=== PATIENT | female | born 1960 | race Caucasian/White ===

== ENCOUNTER → 2017-10-07 | Outpatient (CLI) | payer BC ==
--- NOTE | 2017-10-08 14:27 | MAMMOGRAPHY REPORT ---
BILATERAL DIGITAL SCREENING MAMMOGRAM TOMOSYNTHESIS WITH CAD: 10/07/2017 CLINICAL HISTORY: Routine screening examination. TECHNIQUE: Breast tomosynthesis in addition to standard 2D mammography was performed. Current study was also evaluated with a Computer Aided Detection (CAD) system. COMPARISON: Comparison is made to exams dated: 08/25/2016 mammogram, 08/21/2015 mammogram, 12/20/2013 mammogram, 12/10/2012 mammogram, 11/28/2011 mammogram, and 11/28/2011 ultrasound - [facility]. BREAST COMPOSITION: There are scattered areas of fibroglandular density in both breasts. FINDINGS: There is a stable ribbon-shaped biopsy marker clip in the 6:00 anterior left breast. No ajimes spicious mass, architectural distortion or cluster of microcalcifications is seen. IMPRESSION: ACR BI-RADS CATEGORY 1: NEGATIVE There is no mammographic evidence of malignancy. A 1 year screening mammogram is recommended. The pa tient will receive written notification of the results. Approximately 10% of breast cancers are not detected with mammography. A negative mammographic report should not delay biopsy if a clinically suggestive mass is present. Sara Arana M.D. ay/:10/07/2017 15:45:12 [place] Sinker: Liat BAKER(Will)(M), [facility] letter sent: Normal 1/2 BI-RADS Code: ACR BI-RADS Category 1: Negative
== END | disposition home or self-care (01) ==
LOC: C.MAMM 14:07
PROVIDERS: ATTEND Physician Assistant
DX: Z12.31 Encounter for screening mammogram for malignant neoplasm of breast (principal)

== ENCOUNTER 2024-01-27 05:14 | Observation (INO) ==
--- NOTE | 2023-12-25 10:33 | PAT Medication Instructions ---
Medication Instructions Date of Service December 25, 2023 Home Medications apixaban 5 mg tablet (Eliquis) 5 mg PO BID buspirone 5 mg tablet 5 mg PO TID fluoxetine 40 mg capsule 40 mg PO HS metoprolol succinate 25 mg tablet,extended release 24 hr 25 mg PO BID trazodone 50 mg tablet 50 mg PO HS ASK your prescriber and surgeon apixaban 5 mg tablet (Eliquis) 5 mg PO BID(in order for spinal or epidural anesthesia, Eliquis needs to be stopped 72 hours/3 days before surgery. Please check if okay with doctor that prescribes this to you) Take morning of surgery With a small sip of water, OTHERWISE NOTHING TO EAT OR DRINK AFTER MIDNIGHT: buspirone 5 mg tablet 5 mg PO TID metoprolol succinate 25 mg tablet,extended release 24 hr 25 mg PO BID Take evening before surgery buspirone 5 mg tablet 5 mg PO TID fluoxetine 40 mg capsule 40 mg PO HS metoprolol succinate 25 mg tablet,extended release 24 hr 25 mg PO BID trazodone 50 mg tablet 50 mg PO HS Other Notes If you have any questions please call us at [phone] or [phone] or [phone] or [phone]
--- NOTE | 2023-12-31 12:59 | Anesthesiology Consultation ---
Date of Service December 31, 2023 Assessment & Plan (1) Encounter for pre-operative examination: - awaiting confirmed 12/29/23 [facility] EKG. - NO neuraxial anesthesia by patient request/concern. - cardiology office visit 12/29/23 S: "...cardiology follow-up. Patient is also here for preop cardiac clearance. Patient is tentatively scheduled for L Knee TKA on 01/27/2024...in terms of preop risk assessment, per Silvano Criteria, patient was counseled that she would be placed at a low risk (less than 0.4%) for any adverse perioperative cardiovascular events associated with R TKA surgery. Patient is on a good medication regimen and no other cardiac testing or interventions would further lower that risk. Patient states she understands and is accepting of that risk and wishes to proceed with surgery.-EKG competed and personally reviewed by the undersigned-Reduce Metoprolol Succinate to 12.5 mg at bedtime-Hold Eliquis 48 hours prior to surgery. Patient should resume when hemodynamically stable..." - Outpatient joint assessment: Patient is currently scheduled for inpatient pathway. If re-evaluated and patient/surgeon requests outpatient pathway, patient is not recommended candidate for outpatient joint program from anesthesia standpoint. Chart Review Chart Review: Pending: Refer to Additional Notes / Consult section and Patient seen in Pre Admission Testing Teaching & Discussion Pre-Anesthesia Teaching/Discussion Notes: Instructed NPO after midnight before surgery, except medications with 15 cc of water. Medication instructions provided according to the PAT guidelines. History Surgery Operation Date: 01/27/24 07:15 Proposed Procedures p Left Total Knee Arthroplasty - Randolph Lobo MD Height/Weight Height: 5 ft 4 in Weight: 95.8 kg Allergies Allergy/AdvReac Type Severity Reaction Status Date / Time sulfamethoxazole Allergy Intermediate headaches Verified 12/24/23 14:29 [From Bactrim] trimethoprim [From Bactrim] Allergy Intermediate headaches Verified 12/24/23 14:29 Medications Home Medications Medication Instructions Recorded Confirmed Last Taken apixaban 5 mg tablet (Eliquis) 5 mg PO BID 04/29/23 12/24/23 05/08/23 buspirone 5 mg tablet 5 mg PO TID 04/29/23 12/24/23 05/10/23 23:00 fluoxetine 40 mg capsule 40 mg PO HS 04/29/23 12/24/23 05/10/23 20:00 metoprolol succinate 25 mg 25 mg PO BID 04/29/23 12/24/23 05/10/23 22:30 tablet,extended release 24 hr trazodone 50 mg tablet 50 mg PO HS 04/29/23 12/24/23 05/09/23 Past Medical History Medical History (Updated 01/01/24 @ 09:00 by Anabel Alcantara PA-C) Anxiety Atrial fibrillation dx 2020 with COVID, converted to sinus initially, recurrent afib 1 month later so started on flecanide, pt her stopped meds, admitted 04/25-04/26/23 with recurrent afib, started back on metoprolol and eliquis, no cardioversion, follow with [facility]vin cardio Depression Empty sella listed in [facility] EMR History of COVID-19 hx 2020 - flu like symptoms, denies hospitalized, resolved Hypertension hx On anticoagulant therapy eliquis Osteoarthritis of left knee Sleep apnea does not have a cpap/bipap machine. Patient denies h/o stroke, seizures, heart attack, heart failure, DM, blood clots/DVTs or blood transfusions. Exercise / Class Metabolic Activity III < 4 Walking/Shop/Light housework (denies chest discomfort or shortness of breath with usual activities) Past Family History Family History Father Lung cancer Sister Stroke Other No family history of adverse response to anesthesia Past Surgical History Surgical History History of colonoscopy History of esophagogastroduodenoscopy (EGD) History of right knee joint replacement (~04/2023) Past Anesthesia History No Hx of Anesthesia Complications and No Family Hx of Anesthesia Complications History of PONV No Hx of PONV and No Hx of Motion Sickness Social History Smoking Status: Never smoker Do You Dip or Chew Tobacco: No Hx Alcohol Use: Yes alcohol intake frequency: holidays/special occasions only Hx Substance Use: No substance use type: does not use Review of Systems Patient denies chest pain, shortness of breath, dyspnea on exertion, reflux, fever, chills, cough, wheezing, or palpitations. Physical Exam Vital Signs Vitals BP 132/80 P 55 TEMP 98.3 SP02 95% on RA RESP 18 Physical Patient resting comfortably in chair in no acute distress, alert and oriented, responding appropriately throughout visit Full cervical extension range of motion without pain TMD 3.5 finger breadths Mallampati Score 2 Dentition: intact, denies chipped or loose teeth, caps/crowns, implants or bridges Lungs: normal respiratory effort. Good air movement, clear throughout to auscultation, no adventitious breath sounds Cardiac: regular rate and rhythm, no murmurs noted Carotid arteries: negative bruit bilat Lab Results Anesthesia Preop Results Results Anesthesia Widget: WBC 6.29 K/ul (4.8-10.8) 12/31/23 Hgb 13.9 g/dl (12.0-16.0) 12/31/23 Hct 42.5 % (37.0-47.0) 12/31/23 Plt 238 K/uL (130-400) 12/31/23 Na 137 mmol/L (136-145) 12/31/23 K 4.1 mmol/L (3.5-5.1) 12/31/23 Cl 105 mmol/L (98-107) 12/31/23 CO2 28 mmol/L (21-32) 12/31/23 BUN 12 mg/dl (6-23) 12/31/23 Creat 0.69 mg/dl (0.6-1.2) 12/31/23 Glucose Level 85 mg/dl (70-99(Fasting)) 12/31/23 PT 10.9 Seconds (9.0-12.0) 12/31/23 PTT 28 Seconds (21-31) 12/31/23 INR 1.0 (0.9-1.1) 12/31/23 Blood Type O Positive 12/31/23 Antibody Screen NEGATIVE 12/31/23 Testing Chest X-Ray Date: 12/31/23 No acute process.
--- NOTE | 2024-01-10 19:24 | History & Physical Report ---
Date of Service January 10, 2024 Assessment & Plan (1) Primary osteoarthritis of left knee: Plan: Treatment options discussed with patient. She has failed conservative measures and would like to proceed with surgery. Risks, benefits and alternatives to surgery including but not limited to infection, DVT, pain, stiffness, need for revision surgery, damage to blood vessels, damage to nerves, PE, , were discussed with the patient and they wish to proceed. Plan for left total knee arthroplasty scheduled for January 26 at [facility] with Dr. Lobo. Plan on outpatient physical therapy postop. Plan on resuming home Eliquis postop for DVT prophylaxis. All questions answered. Patient follow-up postop. History of Present Illness Chief Complaint: Left knee pain Primary Care Provider: Tio Baird PA-C 63-year-old female with past medical history significant for A-fib, hypertension, sleep apnea who presents with ongoing left knee pain. Pain is interfering with her daily activities. She has failed conservative measures and would like to proceed with surgery. Patient denies headaches, sweats, fevers, chills, double vision, blurred vision, cough, sore throat, dysphagia, chest pain, sob, wheezing, n/v/d/c, numbness, tingling, fatigue, urinary symptoms, mood disorders. ROS positive for left knee pain and stiffness. Allergies Allergy/AdvReac Type Severity Reaction Status Date / Time sulfamethoxazole Allergy Intermediate headaches Verified 12/24/23 14:29 [From Bactrim] trimethoprim [From Bactrim] Allergy Intermediate headaches Verified 12/24/23 14:29 Home Medications Medication Instructions Recorded Confirmed Type apixaban 5 mg tablet (Eliquis) 5 mg PO BID 04/29/23 12/24/23 History buspirone 5 mg tablet 5 mg PO TID 04/29/23 12/24/23 History fluoxetine 40 mg capsule 40 mg PO HS 04/29/23 12/24/23 History metoprolol succinate 25 mg 25 mg PO BID 04/29/23 12/24/23 History tablet,extended release 24 hr trazodone 50 mg tablet 50 mg PO HS 04/29/23 12/24/23 History Past Med/Surg History Medical History (Updated 01/10/24 @ 19:23 by Bradley Howell PA-C) Empty sella listed in [facility] EMR Osteoarthritis of left knee Depression Anxiety Hypertension hx Sleep apnea does not have a cpap/bipap machine. History of COVID-19 hx 2020 - flu like symptoms, denies hospitalized, resolved On anticoagulant therapy eliquis Atrial fibrillation dx 2020 with COVID, converted to sinus initially, recurrent afib 1 month later so started on flecanide, pt her stopped meds, admitted 04/25-04/26/23 with recurrent afib, started back on metoprolol and eliquis, no cardioversion, follow with [facility] Surgical History History of right knee joint replacement (~04/2023) History of colonoscopy History of esophagogastroduodenoscopy (EGD) Family History Father Lung cancer Sister Stroke Other No family history of adverse response to anesthesia Social History Smoking Status: Never smoker Second Hand Exposure: No; Do You Dip or Chew Tobacco: No; Hx Alcohol Use: Yes Hx Substance Use: No Preferred Language: Occitan Communication Ability: Effective Runner Man Required: No Beliefs That Will Affect Care: None Current Living Situation: Spouse Feels Safe at Home: Yes Assistive Devices: None Review of Systems All systems reviewed & are unremarkable except as noted in HPI & below Physical Exam Constitutional: well developed and well nourished; no acute distress Eyes: PERRL, conjunctivae normal, anicteric sclerae ENMT: external ear and nose normal, oropharynx normal Neck: trachea midline, no thyromegaly Respiratory: normal respiratory effort, lungs clear to auscultation Cardiovascular: RRR, no murmur, no edema Musculoskeletal: Left knee: Valgus alignment. Mild effusion. Tenderness lateral joint line. Positive Alicia's. Stable to valgus and varus stress test. Range of motion is 0 to 90 degrees. Skin: no rashes, warm and dry Neurologic: patellar DTR's 2+ bilat, sensation intact Psychiatric: A+Ox3, euthymic affect Results & Data Diagnostic Findings Left knee radiographs demonstrate stage osteoarthritis, [id number] lateral compartment. There is periarticular osteophytes.
[2024-01-27] MEDS: ACETAMINOPHEN 500 MG TAB PO SCH ×2 (05:43→13:50)
[2024-01-27] MEDS: CeleBREX 200 MG CAP PO SCH (05:43)
[2024-01-27] MEDS: METOCLOPRAMIDE HCL 10 MG TABLET PO SCH (05:43)
[2024-01-27] MEDS: GABAPENTIN 600 MG DOSE PO SCH (05:43)
[2024-01-27] MEDS: FAMOTIDINE 20 MG TAB PO SCH (05:43)
[2024-01-27] MEDS: dexAMETHasone**PF** 10 MG/ML VIAL IV SCH (05:47)
[2024-01-27] MEDS: LR 500ML BOLUS, THEN 15ML/HR IV SCH (05:47)
[2024-01-27] MEDS: LR 60ML/HR IV SCH (05:47)
[2024-01-27] MEDS ORDERED: DEXAMETHASONE SOD INJ 4 MG/ML VIAL ONE ×2 (06:21→07:55)
[2024-01-27] MEDS ORDERED: ROPIVACAINE 0.5% 5 MG/ML 30 ML VIAL ONE (06:21)
[2024-01-27] MEDS ORDERED: BUPIVACAINE 0.5 % 5 MG/1 ML PF 10ML VIAL ONE (06:22)
[2024-01-27] MEDS ORDERED: MIDAZOLAM HCL 1 MG/ML 2ML VIAL ONE (06:53)
[2024-01-27] MEDS ORDERED: LIDOCAINE 2% 2 ML VIAL/AMP(20MG/ML) INFIL ONE (06:56)
[2024-01-27] MEDS ORDERED: PROPOFOL IV EMULSION 10 MG/ML 20 ML VIAL IV ONE (06:56)
[2024-01-27] MEDS ORDERED: ONDANSETRON INJ 2 MG/ML 2 ML VIAL ONE (06:57)
[2024-01-27] MEDS ORDERED: KETAMINE HCL INJ 50 MG/ML 10 ML VIAL ONE (07:04)
[2024-01-27] MEDS: TRANEXAMIC ACID 1,000 MG **IV Pre-op IV SCH (07:17)
--- NOTE | 2024-01-27 07:17 | History & Physical Bridge Note ---
Date of Service January 27, 2024 History & Physical Bridge Note I have examined the patient, reviewed the History & Physical and in the interval since the performance of the History & Physical I have noted the following changes of clinical significance: no changes noted
[2024-01-27] MEDS: ceFAZolin 2000MG 2,000 MG/15 ML SYR IV SCH ×2 (07:27→16:07)
[2024-01-27] MEDS ORDERED: fentaNYL citrate PF 100 MCG/2 ML VIAL ONE (07:44)
[2024-01-27] MEDS ORDERED: ePHEDrine sulfate 50 MG/5 ML SYR ONE (07:45)
[2024-01-27] MEDS ORDERED: PROMETHAZINE HCL 6.25 MG in SODIUM CHLORIDE 0.9% 50 ML IV PRN (07:58)
[2024-01-27] MEDS ORDERED: ePHEDrine sulfate 50 MG/ML AMP IV PRN (07:58)
[2024-01-27] MEDS ORDERED: ATROPINE SULFATE 0.1 MG/ML 10ML SYR IV PRN (07:58)
[2024-01-27] MEDS: ORTHO JOINT ANESTHETIC ONE (08:15)
[2024-01-27] MEDS: TRANEXAMIC ACID 1,000 MG **IV Intra-op IV SCH (09:02)
[2024-01-27] MEDS: ROPIV 0.5% 246mg, Ketorolac 30mg, EPINEPHrine 0.5mg in NSS INFIL SCH (09:05)
[2024-01-27] MEDS ORDERED: KETOROLAC 30 MG/ML VIAL ONE (09:24)
--- NOTE | 2024-01-27 09:24 | Operative Report ---
Post Operative Report Pre & Post Diagnosis Operation Date: 01/27/24 07:15 Pre-Op Diagnosis: Primary osteoarthritis of left knee Post-Op Diagnosis: Primary osteoarthritis of left knee I identified the patient and participated in the time-out.: Yes Procedure Operation Date: 01/27/24 07:15 Actual Procedures p Left Total Knee Arthroplasty(Left), lateral release, nikos and Acticoat superficial wound VAC application- Randolph Lobo MD Surgeon Randolph Lobo MD Horticulture Instructor Herb TONEY Estimated Blood Loss 5 Findings Consistent with Post-Op Diagnosis Specimens Bone cuts Drains Hemovac x 2 Anesthesia Type MAC Spinal Regional Complications none Disposition Disposition: Recovery Room Indications 63-year-old female with chronic osteoarthritis her left knee. She has substantial valgus alignment of her knee with tricompartmental osteoarthritis and patellofemoral malalignment. Patient's [id number] lateral compartment. Description of Procedure The patient was taken to the operating room and anesthetized under spinal MAC regional block. Patient was placed supine on the the operating table. A pneumatic tourniquet was placed about the moderately obese left upper thigh. The knee exam demonstrated 15 degrees of hyperextension with full flexion and a valgus knee with no lateral pseudolaxity approximately 15 to 20 degrees of valgus. Moderate effusion. The involved leg was elevated exsanguinated with Esmarch bandage and the pneumatic tourniquet was raised to 325 millimeters mercury. A longitudinal incision was made across the anterior knee. Skin flaps were elevated. An incision was made into the medial retinaculum and extended up into the mid third of the quadriceps tendon and extended down to the tibial tubercle. Intra-articular findings demonstrated tricompartmental osteoarthritis grade 4 all 3 compartments cysts with a thin patella. The knee was exposed by excising cruciate ligaments and menisci. The infrapatellar fat pad was resected. The fat pad over the anterior femur at the upper aspect of the articular surface was resected for placement of the component in that area. A subperiosteal peel lateral release was performed around the patella. The lateral synovial bands were released. The [employer] journey 2.0 posterior stabilized total knee arthroplasty system was utilized for the procedure. The custom femoral cutting guide was pinned in position. The distal femoral cut was made. The size 4, 5 in 1 cutting block was placed. The anterior posterior and chamfer cuts were made. The knee was extended and a free hand cut technique was performed to the patella. The patella width was measured and the width was reproduced using a 32 symmetrical patella component. 3 drill holes are made for the patella component pegs. The tibia was then subluxed. The custom tibial cutting block was pinned in position and the proximal tibial cut was made with the oscillating saw. Flexion and extension gaps were balanced. This required releasing the IT band subperiosteal of the lateral tibia doing a lateral and posterior lateral capsule release doing a popliteus tendon release and recessing some of the lateral collateral ligament on the femoral condyle. Cysts in the tibia were curetted out. The size 2 tibial trial was externally rotated in line with the tibial tubercle and pinned in position. The punch for the stem was used. The femoral trial was inserted and centered the notch cutting devices were used and the collet was placed. Tibial trials were used for the insert. The size 15 trial gave balanced ligaments through full range of motion. Patella tracking was assessed with range of motion. The patella tracked with some lateral patellar tilt so I did do a lateral release leaving as much of the synovium intact as possible and I preserved the geniculate vessels laterally. The trials were removed. The Orthomix anesthetic cocktail was injected per protocol. The cut bone surfaces and soft tissue were copiously irrigated with pulsatile lavage saline solution. The final components were cemented with Refobacin cement. The final components were Hernandez [employer]hew journey 2.0 size 4 left femoral component, size 2 left tibial component, 15 mm left tibial polyethylene insert and a 32 mm symmetrical polyethylene patella. Xperience irrigation was placed over metal tray prior to polyethyle insertion. After the cement cured, the knee was then copiously irrigated with pulsatile lavage Xperience solution. 2 drains were brought out laterally connected to Hemovac. The quadriceps tendon and medial retinaculum were closed with interrupted [id number] #1 Vicryl sutures. The knee was taken through full range of motion and repair was secure. Knee range of motion was 0 through 125 degrees.. the subcutaneous tissues were closed with 2-0 Vicryl sutures. The skin was closed with surgical charanjit. A nikos and Acticoat superficial wound VAC was applied. The tourniquet was let down and the patient had good capillary refill to the extremity. The patient tolerated the procedure well. My physician internal medicine physician assistant Herb TONEY participated as undertaker assistant and was integral part in all aspects of the procedure including prepping, draping, leg positioning, soft tissue retraction, instrument management and assisted in the closure , superficial wound VAC application and will participate in postoperative care the patient. I attest to the content of the Intraoperative Record and any orders documented therein. Any exceptions are noted below.
--- OUTSIDE RECORDS SUMMARY | 2024-01-27 10:14 | External Medical Summary | Summary of Care ---
Author Name Unknown Organization [facility] Address [address] [place] [address] Phone [phone] Care Team Providers Care Securities Dealer Name Role Phone Tio Baird PA-C Primary Care Provider Reason for Visit * Reason Comments Physical-Exam Needs Preop clearanc e for left total knee replacement on 01/27/[address] Lobo Encounter Details Date Type Department Care Team (Late st Contact Info) Description 01/12/2024 4:20 PM EDT Office Visit [facility] [address] [place] [phone] Tio Baird PA-C [email or web address] [place] [address] Primary osteoarthritis of left knee*; Severe episode of recurrent major depressive disorder, without psychotic features (HCC); Paroxysmal atrial fibrillation (HCC); Morbid obesity due to excess calories (HCC); HTN, goal below 140/90; Primary insomnia; Preop examination Allergies Active Allergy Reactions Criticality Noted Date Comments Bactrim Nausea/vomiting,Othe r (Please comment) Medium 08/23/2009 headache documented as of this encounter (statuses as of 01/12/2024) Medications Medication Sig Dispensed Refills Start Date End Date Status Apixaban 5 MG Oral Tablet (Eliquis) Take 1 Tablet by mouth in the morning and 1 Tablet before bedtime. 60 Tablet 5 05/28/2023 Active traZODone HCl 50 MG Oral Tablet (Desyrel)Indications: Insomnia, unspecified one half to one pill at bedtime as needed for sleep 90 Tablet 3 06/16/2023 Active busPIRone HCl 5 MG Oral Tablet (Buspar)Indications:A nxiety state TAKE 1 TABLET BY MOUTH IN THE MORNING, TAKE 1 TABLET AT NOON & TAKE 1 TABLET BEFORE bedtime 90 Tablet 2 11/24/2023 Active FLUoxetine HCl 40 MG Oral Capsule (PROzac)Indications:A nxiety state TAKE ONE CAPSULE BY MOUTH ONCE DAILY 90 Capsule 1 12/29/2023 Active Metoprolol Succinate ER 25 MG Oral Tablet Extended Release 24 Hour (Toprol XL) Take 0.5 Tablets by mouth at bedtime. 45 Tablet 3 12/29/2023 Active documented as of this encounter (statuses as of 01/12/2024) Active Problems Problem Noted Date Diagnosed Date Severe episode of recurrent major depressive disorder, without psychotic features 01/12/2024 Primary insomnia 01/12/2024 Paroxysmal atrial fibrillation 05/04/2023 PMB (postmenopausal bleeding) 03/27/2023 Body mass index (BMI) of 40.0 to 44.9 in adult 0 04/09/2021 Overview: Per Obesity protocol History of 2019 novel coronavirus disease (COVID -19) 02/24/2021 Morbid obesity due to excess calories 03/06/2020 HTN, goal below 140/90 09/30/2018 Empty sella 07/26/2009 Overview: CT scan 07/04 with incidental findings of empty sella ADVANCE DIRECTIVE INFORMATION 06/21/2008 Overview: No, Advance Directive brochure given to patient. Anxiety state 07/31/2004 documented as of this encounter (statuses as of 01/12/2024) Resolved Problems Problem Noted Date Diagnosed Date Resolved Date Recurrent major depressive disorder 03/02/2023 01/12/2024 Atrial fibrillation with RVR 02/24/2021 04/26/2023 Chest pain 02/24/2021 03/05/2021 Obesity, Class II, BMI 35-39 .9, isolated (see actual BMI) 01/21/2010 03/13/2023 Overview: Per Obesity Taxonomy, with sign weight loss Internal hemorrhoids 09/12/2009 017 Overview: Colonoscopy 09/12/09, severe internal hemorrhoids, otherwise negative exam. Malaise and fatigue 07/31/2004 08/31/20 17 Abdominal pain, generalized 07/31/2004 08/31/2017 Anal fissure 07/31/2004 08/31/2017 HELICOBACTER PYLORI (H. PYLORI) INFECTION 06/24/2004 08/31/2017 Nausea 05/22/2004 08/31/2017 Overview: 07/31/2004 resolved ICD-10 update of inactive term OBESITY, UNSPECIFIED 01/11/2004 010 Overview: Per Obesity Taxonomy, with sign weight loss AIDEN DOMINGO SOFT TISSUE ARM(aka LIPOMA) 01/11/2004 08/31/2017 Overview: both UE x y documented as of this encounter (statuses as of 01/12/2024) Immunizations Name Administration Dates Next Due Seasonal Influenza, Split, I IV3, With Preserve, Inj 11/27/2011(Deferred: Patient Refused) TDAP (age 11 and older)(Adacel) 11/27/2011(Defer red: Patient Refused) documented as of this encounter Social History Tobacco Use Types Packs/Day Years Used Date Smoking Tobacco: Never Smokeless Tobacco: Never Alcohol Use Standard Drinks/Week Comments Yes 0 (1 standard drink = 0.6 oz pur e alcohol) rarely PHQ-2 Answer Date Recorded PHQ Adult Total Score 17 02/26/2023 Hunger Vital Sign Answer Date Recorded Within the past 12 months, y ou worried that your food would run out before you got the money to buy more. Never true 02/27/20 23 Within the past 12 months, t he food you bought just didn't last and you didn't have money to get more. Never true 02/26/2023 Sex and Gender Information Value Date Recorded Sex Assigned at Female 03/06/2020 10:49 AM EDT Gender Identity Female 03/06/2020 10:49 AM EDT Sexual Orientation Straight 03/06/2020 10 :49 AM EDT Job Start Date Occupation Industry Not on file Not on file Not on file documented as of this encounter Last Filed Vital Signs Vital Sign Reading Time Taken Comments Blood Pressure 128/80 01/12/2024 4:07 PM EDT Pulse 72 01/12/2024 4:07 PM EDT Temperature 37.3 C (99.1 F) 01/12/2024 4:07 PM ED T Respiratory Rate 16 01/12/2024 4:07 PM EDT Oxygen Saturation 95% 01/12/2024 4:07 PM EDT Inhaled Oxygen Concentration - - Weight 96 kg (211 lb 9.6 oz) 01/12/2024 4:07 PM EDT Height 163.8 cm (5' 4.5") 01/12/2024 4:07 PM EDT Body Mass Index 35.76 01/12/2024 4:07 PM EDT documented in this encounter Functional Status Functional Status Response Date of Assess ment Are you deaf or do you have serious difficulty h earing? No 04/25/2023 Are you blind or do you have serious difficulty seeing, even when wearing glasses? No 04/25/2023 Do you have serious difficul ty walking or climbing stairs? (5 years old or older) No 04/25/2023 Do you have difficulty dress ing or bathing? (5 years old or older) No 04/25/2023 Because of a physical, menta l, or emotional condition, do you have difficulty doing errands alone such as visiting a doctor s office or shopping? (15 years old or older) No 04/25/20 Cognitive Status Response Date of Assessm ent Because of a physical, menta l, or emotional condition, do you have serious difficulty concentrating, remembering, or making decisions? (5 years old or older) No 04/25/2023 documented as of this encounter Progress Notes * Tio Baird PA-C - 01/12/2024 4:27 PM EDT Subjective: Patricia Ahmadi is a 63 year old female. Chief Complaint Patient presents with Physical-Exam Needs Preop clearance for left total knee replacement on 01/27/[address] Lobo HPI: Here for a pre-op exam. Will be having a left total knee replacement on 01-27-24 at [address] [facility] by Dr. Lobo. Had lab testing done. I don't have the results today. History of depression-stable on prozac. History of paf-on a medication. Cardiology cleared her for surgery on12-31-23. History of obesity-trying to follow a diet. History of htn-on a medication. History of insomnia-on a medication. Patient Active Problem List Diagnosis Code Anxiety state F41.1 ADVANCE DIRECTIVE INFORMATION Empty sella ([facility]) E23.6 HTN, goal below 140/90 I10 Morbid obesity due to excess calories ([facility]) E66.01 History of 2019 novel coronavirus disease (COVID-19) Z86.16 Body mass index (BMI) of 40.0 to 44.9 in adult ([facility]) Z68.41 PMB (postmenopausal bleeding) N95.0 Paroxysmal atrial fibrillation ([facility]) I48.0 Severe episode of recurrent major depressive disorder, without psychotic features ([facility]) F33.2 Primary insomnia F51.01 Current Outpatient Medications Medication Sig Dispense Refill Apixaban 5 MG Oral Tablet (Eliquis) Take 1 Tablet by mouth in the morning and 1 Tablet before bedtime. 60 Tablet 5 traZODone HCl 50 MG Oral Tablet (Desyrel) one half to one pill at bedtime as needed for sleep 90 Tablet 3 busPIRone HCl 5 MG Oral Tablet (Buspar) TAKE 1 TABLET BY MOUTH IN THE MORNING, TAKE 1 TABLET AT NOON & TAKE 1 TABLET BEFORE bedtime 90 Tablet 2 FLUoxetine HCl 40 MG Oral Capsule (PROzac) TAKE ONE CAPSULE BY MOUTH ONCE DAILY 90 Capsule 1 Metoprolol Succinate ER 25 MG Oral Tablet Extended Release 24 Hour (Toprol XL) Take 0.5 Tablets by mouth at bedtime. 45 Tablet 3 No current facility-administered medications for this visit. Past Medical History: Diagnosis Date Anxiety state 07/31/2004 Atrial fibrillation with RVR ([facility]) 02/24/2021 Body mass index (BMI) of 40.0 to 44.9 in adult ([facility]) 04/09/2021 Per Obesity protocol Dyslipidemia, goal LDL below 160 Empty sella ([facility]) 07/26/2009 CT scan 07/04 with incidental findings of empty sella Esophagitis, unspecified History of 2019 novel coronavirus disease (COVID-19) 02/24/2021 HTN, goal below 140/90 09/30/2018 Irritable bowel syndrome Lichen planus Obesity, BMI not known Recurrent major depressive disorder (HCC) 03/02/2023 Past Surgical History: Procedure Laterality Date COLONOSCOPY, DIAGNOSTIC (RECTUM) 09/12/09 wnl EGD, FLEXIBLE, W/BIOPSY 09/12/09 wnl MRI L SPINE W WO CONTRAST 08/26/08 Mild DDD, disc bulge at L5-L6, large cavernous hemangioma within the L1 vertebral body. Review of patient's allergies indicates: Allergen Reactions Bactrim Nausea/vomiting and Other (Please comment) headache Family History Problem Relation Age of Onset Other (doesn't go to doctor's) Mother Other (Lung ca) Father No Contact - in his 70's from the lung cancer No Past Hx Sister x3 Other (EtOHism) Sister at 47 Stroke Sister Heart Disorder Sister ND at age 46 - stents placed - dc'd Family Status Relation Status Mo Fa Sis Alive Sis Sis Sis Alive MGMA MGFA PGMA PGFA Social History Tobacco Use Smoking status: Never Smokeless tobacco: Never Substance Use Topics Alcohol use: Yes Comment: rarely Vaping/E-Cigarette Use Vaping/E-Cigarette Use Never User Vaping/E-Cigarette Substances Vaping/E-Cigarette Devices Review of Systems: Constitutional ROS: No change in weight and No fevers, sweats, or chills Eye ROS: No recent significant change in vision, No eye pain, redness, discharge, No diplopia, No h/o cataracts, and No h/o glaucoma Ear ROS: No ear pain, No drainage, No tinnitus or vertigo, and No recent change in hearing Nose ROS: No history of frequent colds or sinusitis, No nasal stuffiness, No history of Hay Fever, and No significant epistaxis Mouth/Throat ROS: No bleeding gums, No thrush, or No sore throat Neck ROS: No lumps or masses, No swollen glands, No recent swelling in thyroid area, No significantpain in neck, and No h/o goiter or thyroid disease Pulmonary ROS: No cough, sputum, or hemoptysis, No wheezing, No rales, No shortness of breath, and No recent change in breathing Cardiovascular ROS: No chest pain, No shortness of breath, No dyspnea on exertion, No orthopnea, Noparoxysmal nocturnal dyspnea, No edema, No palpitations, and No syncope Gastrointestinal ROS: No abdominal pain, No change in bowel habits, No significant heartburn, No significant change in appetite, No nausea, vomiting, diarrhea, or constipation, No hematemesis, No blood in stools or black tarry stools, No abdominal bloating or early satiety, and No dysphagia Genito-Urinary Female ROS: No STDs, No dysuria, No frequency, No incontinence, and No urgency Hematologic/Lymphatic ROS: No coagulation disorder, No anemia, No abnormal bleeding, No chills, No bruising, No HIV risk factors, No night sweats, No swollen nodes, and No weight loss Skin/Integumentary ROS: No rash and No itching Neurologic ROS: No headaches and No seizures Endocrine ROS: No heat intolerance, No cold intolerance, No thyroid trouble, and No excessive thirst or urination Psychiatric ROS: No psychosis OBJECTIVE: BP 128/80 | Pulse 72 | Temp 37.3 C (99.1 F) (Tympanic) | Resp 16 | Ht 1.638 m (5' 4.5") | Wt 96kg (211 lb 9.6 oz) | LMP 11/09/2016 (Approximate) | SpO2 95% | BMI 35.76 kg/m | BSA 2.09 m PHYSICAL EXAM: General: alert, no distress, and obese Affect: Dressed appropriately. Makes eye contact when speaking. Head: Normocephalic, No masses, lesions, tenderness or abnormalities Eye Exam: PERRLA, extraocular movements intact, conjunctiva are pink and non- injected, sclera clear Ears: External ears normal, Canals clear, TM's Normal Nose: no mucosal erythema, no mucosal edema, no purulent discharge Oropharynx: no exudate, no erythema, lips, buccal mucosa, and tongue normal, and mucous membranes are moist Neck: supple, no adenopathy, no bruits, thyroid normal size, non-tender, without nodularity Heart: regular rate & rhythm, no murmur, and no gallops Lungs: chest symmetric with normal AP diameter, no chest deformities noted, no chest wall tenderness, lungs clear to auscultation Pulses: carotid=2/4 w/o bruits Abdomen: abdomen soft, non-tender, normal bowel sounds, and no masses or organomegaly Back: back symmetric, no curvature, no costovertebral angle tenderness, range of motion is normal Extremities: less than 2 second capillary refill Neuro Exam: alert & oriented x 3 with fluent speech, reflexes normal and symmetric, walks with a limp Skin: no rashes or significant lesions ASSESSMENT: M17.12 Primary osteoarthritis of left knee (primary encounter diagnosis) Note: Left knee replacement scheduled for 01-27-24 Plan: OK for surgery as planned as long as recent testing is within acceptable limits Follow Dr. Lobo instructions F33.2 Severe episode of recurrent major depressive disorder, without psychotic features (HCC) I48.0 Paroxysmal atrial fibrillation (HCC) E66.01 Morbid obesity due to excess calories (HCC) I10 HTN, goal below 140/90 F51.01 Primary insomnia Z01.818 Preop examination PLAN: No orders of the defined types were placed in this encounter. Follow up: I spent a total of 40-54 minutes (exact time 47 mins) on the date of service in preparation, delivery, and documentation of the care provided to Patricia Ahmadi excluding any time spent in the performance of separately billed services. Tio Baird PA-C 01/12/2024 4:34 PM documented in this encounter Nursing Notes * Jannie Garcia LPN - 01/12/2024 4:07 PM EDT Chief Complaint Patient presents with Physical-Exam Needs Preop clearance for left total knee replacement on 01/27/[address] Lobo Patient has been verbally educated on the need or importance of Immunizations: flu and has declinedtopic(s). documented in this encounter Plan of Treatment Health Maintenance Due Date Last Done Comments DTaP,Tdap,and Td Vaccines (1 - Tdap) 1981 Cologuard 2007 Fecal Occult Blood Test 2007 Sigmoidoscopy 2007 Colonoscopy 09/12/2019 09/12/2009, 05/09/2004 Colorectal Cancer Screening 09/12/2019 Depression, Most Recent Score >= 10 (will fire each visit until score < 10) 02/27/2023 02/26/2023 COVID-19 Vaccine ( season) 2023 Influenza Vaccine (FLU shot) (#1) 2023 Mammogram 11/06/2023 11/06/2022, 03/2022, 10/30/2020, Additional history exists GFR 04/26/2024 04/26/2023, 0 10/2022, 04/23/2023, Additional history exists Albumin/Creatinine Ratio 01/09/2026 01/09/2023 Pap Smear 03/27/2026 03/27/2023, 04/26, 09/01/2016, Additional history exists Diabetes Screening 04/26/2026 04/26/2023, 0 04/25/2023, 04/23/2023, Additional history exists Lipid Panel 01/10/2028 01/09/2023, 11/27, 03/18/2021, Additional history exists Cervical Cancer Screening 03/27/2028 HPV/Co-Test 03/27/2028 03/27/2023 GARDASIL-HPV IMMUNIZATION SERIES Aged Out No longer eligible based on patient's age to complete this topic Hepatitis B Aged Out No longer eligi ble based on patient's age to complete this topic MENINGOCOCCAL (MENACTRA/MENVEO) Aged Out No longer eligible based on patient's age to complete this topic Pneumococcal Vaccine: Pediatrics (0 to 5 Years) and At-Risk Patients (6 to 64 Years) Aged Out No longer eligible based on patient's age to complete this topic Zoster Vaccines Discontinued documented as of this encounter Medical Devices Not on filedocumented as of this encounter Visit Diagnoses Diagnosis Primary osteoarthritis of left knee- Primary Primary localized osteoarthrosis, lower leg Severe episode of recurrent major depressive disorder, without psychotic features (HCC) Paroxysmal atrial fibrillation (HCC) Atrial fibrillation Morbid obesity due to excess calories (HCC) HTN, goal below 140/90 Unspecified essential hypertension Primary insomnia Persistent disorder of initiating or maintaining sleep Preop examination Preoperative examination, unspecified documented in this encounter Advance Directives Latest Code Status on File Code Status Date Activated Date Inactivated Comments Full Code 04/25/2023 10:11 AM 04/26/2023 4:13 PM This o rder reflects the patients wishes and were consensually agreed upon. Question Answer Comments Discussion of Advance Directives occurred with: Patient Does the patient have a Living Will? No Does the patient have Health Care Power of Probation And Patrol Agent? No Code Status History Code Status Date Activated Date Inactivated Comments Full Code 02/24/2021 2:32 PM 02/25/2021 10:27 PM This o rder reflects the patients wishes and were consensually agreed upon. Question Answer Comments Discussion of Advance Directives occurred with: Patient Does the patient have a Living Will? No Does the patient have Health Care Power of Probation And Patrol Agent? No Care Teams Securities Dealer Relationship Specialty Start Date End Date Tio Baird PA-C [address] [place] [id number] PCP - General Physician Crib Tender 01/20/19 documented as of this encounter
--- OUTSIDE RECORDS SUMMARY | 2024-01-27 10:14 | External Medical Summary | Summary of Care ---
Author Name Unknown Organization [facility] Address [address] [facility] [place] [address] Phone [phone] Care Team Providers Care Photo Lab Manager Name Role Phone Tio Baird PA-C Primary Care Provider [phone] Reason for Visit * Reason Onset Date Comments Information 11/27/2023 Encounter Details Date Type Department Care Team (Late st Contact Info) Description 11/27/2023 Telephone [facility] [address] [employer] [place] [address] Tio Baird PA-C [address] [facility] [place] [address] Information Allergies Active Allergy Reactions Criticality Noted Date Comments Bactrim Nausea/vomiting,Othe r (Please comment) Medium 08/23/2009 headache documented as of this encounter (statuses as of 01/18/2024) Medications Medication Sig Dispensed Refills Start Date End Date Status Apixaban 5 MG Oral Tablet (Eliquis) Take 1 Tablet by mouth in the morning and 1 Tablet before bedtime. 60 Tablet 5 05/28/2023 Active traZODone HCl 50 MG Oral Tablet (Desyrel)Indicati ons:Insomnia, unspecified one half to one pill at bedtime as needed for sleep 90 Tablet 3 06/16/2023 Active busPIRone HCl 5 MG Oral Tablet (Buspar)Indicatio ns:Anxiety state TAKE 1 TABLET BY MOUTH IN THE MORNING, TAKE 1 TABLET AT NOON & TAKE 1 TABLET BEFORE bedtime 90 Tablet 2 11/24/2023 Active FLUoxetine HCl 40 MG Oral Capsule (PROzac)Indicatio ns:Anxiety state TAKE 1 CAPSULE BY MOUTH ONCE A DAY 90 Capsule 3 01/09/2023 12/29/2023 Discontinued Metoprolol Succinate ER 25 MG Oral Tablet Extended Release 24 Hour (Toprol XL) Take 1 Tablet by mouth in the morning and 1 Tablet before bedtime. 60 Tablet 5 04/27/2023 12/29/2023 Discontinued documented as of this encounter (statuses as of 01/18/2024) Active Problems Problem Noted Date Diagnosed Date [...] as of this encounter (statuses as of 01/18/2024) Resolved Problems Problem Noted Date Diagnosed Date [...] as of this encounter (statuses as of 01/18/2024) Immunizations Name Administration Dates Next Due Seasonal [...] on file documented as of this encounter Functional Status Functional Status Response [...] No 04/25/2023 documented as of this encounter Miscellaneous Notes * Telephone Encounter - Marlene Franklin OSA - 01/18/2024 9:37 AM EDT 01.12.2024 OV note faxed successfully to [phone] and [phone] * Telephone Encounter - Marlene Franklin OSA - 2023 10:26 AM EST OV Note from this appointment needs to both [phone] and [phone] * Telephone Encounter - Tio Baird PA-C - 11/27/2023 5:00 PM EST Can use that appointment for pre-op. Assign it as such. * Telephone Encounter - Marlene Franklin OSA - 11/27/2023 3:12 PM EST Pt needs a pre-op exam prior to 01.27.2024 for a Total Knee Replacement. She is scheduled for a CPEon 03.19.2024, can this be used for her Pre-Op? documented in this encounter Plan of Treatment [...] (FLU shot) (#1) 2023 Mammogram 11/06/2023 11/06/2022, 0 03/2022, 10/30/2020, Additional history exists GFR 04/26/2024 04/26/2023, 070 10/2022, 04/23/2023, Additional history exists Albumin/Creatinine Ratio 01/09/2026 01/09/2023 Pap Smear 03/27/2026 03/27/2023, 2 10/2019, 09/01/2016, Additional history exists Diabetes Screening 04/26/2026 [...] Not on filedocumented as of this encounter Advance Directives Latest Code Status on File Code Status Date Activated Date Inactivated Comments Full Code 04/25/2023 10:11 AM 04/26/2023 4:13 PM This o rder reflects the patients wishes and were consensually agreed upon. Question Answer Comments Discussion of Advance Directives occurred with: Patient Does the patient have a Living Will? No Does the patient have Health Care Power of Nurse Staff Industrial? No Code Status History Code Status Date Activated Date Inactivated Comments Full Code 02/24/2021 2:32 PM 02/25/2021 10:27 PM This o rder reflects the patients wishes and were consensually agreed upon. Question Answer Comments Discussion of Advance Directives occurred with: Patient Does the patient have a Living Will? No Does the patient have Health Care Power of Nurse Staff Industrial? No Care Teams Photo Lab Manager Relationship Specialty Start Date End Date Tio Baird PA-C [address] [place] [address] [id number] PCP - General Physician Log Marker 01/20/19 documented as of this encounter
[2024-01-27] MEDS: HYDROmorphone INJ 2 MG/ML SYR/VIAL IV PRN (10:20)
[2024-01-27] MEDS ORDERED: NALOXONE HCL 0.4 MG/1 ML VIAL/CARP IV PRN (11:02)
[2024-01-27] MEDS ORDERED: HYDROmorphone INJ 0.5 MG/0.5 ML SYR IV PRN (11:02)
[2024-01-27] MEDS ORDERED: MAGNESIUM HYDROXIDE SUSP 30 ML UDC PO PRN (11:02)
[2024-01-27] MEDS ORDERED: bisacodyL 10 MG SUPP PR PRN (11:02)
[2024-01-27] MEDS ORDERED: oxyCODONE HCL IR 5 MG TAB (IMMEDIATE RELEASE) PO PRN (11:02)
[2024-01-27] MEDS ORDERED: ONDANSETRON INJ 2 MG/ML 2 ML VIAL IV PRN (11:02)
[2024-01-27] MEDS ORDERED: diphenhydrAMINE 50 MG/ML VIAL IV PRN (11:02)
[2024-01-27] MEDS: SODIUM CHLORIDE 0.9% 1,000 ML IV SCH (11:28)
--- NOTE | 2024-01-27 11:36 | XRay Report ---
XR knee LT 1 or 2V routine CLINICAL HISTORY: Surgical Post Op TECHNIQUE: 2 views of the left knee were obtained. Comparison: None available at the time of this dictation. FINDINGS: Patient is status post total knee arthroplasty with expected postsurgical changes including soft tiss ue swelling and subcutaneous emphysema. No periarticular lucency or hardware fracture is seen. . IMPRESSION: Expected postoperative appearance status post placement of total knee arthroplasty. ACT 112: Negative or not required by law. Electronically signed by: Daniel Gomez M.D. 01/27/2024 11:34 AM
--- NOTE | 2024-01-27 11:40 | Hospitalist Consultation ---
Date of Consultation January 27, 2024 Assessment & Plan (1) Primary osteoarthritis of left knee: - Pain management, bowel regimen and DVT ppx per the primary team - PT/OT consults, pt is planning on outpatient therapy with rehab starting February 01 - Follow am CBC to monitor for acute blood loss, hgb of 13.9 on 12/31/23 is most recent lab (2) Atrial fibrillation: - Continue rate control with metoprolol - Pt has been OFF eliquis since sometime in October due to insurance, she now has prescription at home and is willing to resume eliquis, to resume postoperatively within 24 hours as long as this is ok with the primary service (3) Hypertension: -Continue metoprolol succinate 12.5 mg at bedtime - Controlled, stable, chronic (4) Anxiety: - Continue prozac, BuSpar DVT ppx: teds, scds Lines: 2 PIV FEN/GI: HH diet CODE: Full code Dispo: From home, likely to remain in the hospital x 1-2 days Thank you for involving us in the care of Ms. Ahmadi. Please do not hesitate to call with questions or concerns. At this time medicine service will follow along. A total of 40 minutes were spent with greater than 50% of that time face to face with the patient, personally reviewing all current laboratories, imaging studies, past medication reconciliation, outpatient chart review, and discussion with specialists to collaborate care for the patient with attending. Please see attending documentation for corrections and/or additions. Supervising Physician Co-Signing Physician Notes Patient seen and examined independently. Discussed with above provider. Patient is a 63-year-old female with past medical history of A-fib on Eliquis, hypertension, hyperlipidemia, depression, insomnia, obesity who underwent left total arthroplasty by orthopedics today. She is comfortable lying on the bed; not in distress. She denies chest pain, shortness of breath, palpitation, abdominal pain. Close to be resumed as per orthopedics from tomorrow a.m. Continue on metoprolol for hypertension Continue buspirone and fluoxetine Pain control as per orthopedics PT OT eval I have reviewed the advanced practitioner's documentation, and I agree with, and take responsibility for the plan of care I spent a total of 15 minutes coordinating, documenting, and providing care for this patient excluding time spent in the performance of separately billed s ervices. All of the aforementioned completed while collaborating with the assigned advanced practitioner for a full treatment plan History of Present Illness Reason for Consultation: Medical management Requesting Physician: Dr. Beckett Attending Physician: Randolph Lobo MD History of Present Illness This is a 63-year-old female with PMHx of A-fib on Eliquis, HTN, HLD, and anxiety who presents to the hospital for elective left total knee replacement by Dr. Beckett on 01/27/2024. Pt states that she is doing well overall. Pt has sensation back into her legs bilaterally, can wiggle her toes, reports last BM was yesterday. She hasn't peed since before surgery this morning, no catheter. Pt is tolerating liquids without difficulty, no nausea, vomiting. Pt anticipates going to outpatient PT and is scheduled for her first session on February 01 In regards to atrial fibrillation, patient states that she has been off of Eliquis since sometime in October when she had issues with her insurance. At this point she has pills at home however states that she did not take anything since that timeframe because it was close to her surgery. We discussed her son making her Eliquis for preventing risk of throwing clot stroke and history of atrial fibrillation. She denies any chest tightness or palpitations or sensation like she has been in A-fib in the past few months. She has been taking metoprolol without missing doses. Allergies Allergy/AdvReac Type Severity Reaction Status Date / Time sulfamethoxazole Allergy Intermediate headaches Verified 01/27/24 05:31 [From Bactrim] trimethoprim [From Bactrim] Allergy Intermediate headaches Verified 01/27/24 05:31 Home Medications Medication Instructions Recorded Confirmed Type apixaban 5 mg tablet (Eliquis) 5 mg PO BID 04/29/23 01/27/24 History buspirone 5 mg tablet 5 mg PO TID 04/29/23 01/27/24 History fluoxetine 40 mg capsule 40 mg PO HS 04/29/23 01/27/24 History metoprolol succinate 25 mg 25 mg PO BID 04/29/23 01/27/24 History tablet,extended release 24 hr trazodone 50 mg tablet 50 mg PO HS 04/29/23 01/27/24 History acetaminophen 500 mg tablet 1,000 mg (2 x 500 mg) PO Q8 14 01/27/24 01/27/24 Rx (Tylenol Extra Strength) days #84 tabs polyethylene glycol 3350 17 gram 17 g PO DAILY PRN constipation #5 01/27/24 01/27/24 Rx oral powder packet (Miralax) ea Patient History Medical History Empty sella listed in [facility] EMR Osteoarthritis of left knee Depression Anxiety Hypertension hx Sleep apnea does not have a cpap/bipap machine. History of COVID-19 hx 2020 - flu like symptoms, denies hospitalized, resolved On anticoagulant therapy eliquis Atrial fibrillation dx 2020 with COVID, converted to sinus initially, recurrent afib 1 month later so started on flecanide, pt her stopped meds, admitted 04/25-04/26/23 with recurrent afib, started back on metoprolol and eliquis, no cardioversion, follow with [facility] cardio Surgical History History of right knee joint replacement (~04/2023) History of colonoscopy History of esophagogastroduodenoscopy (EGD) Family History Father Lung cancer Sister Stroke Other No family history of adverse response to anesthesia Social History Smoking Status: Never smoker Second Hand Exposure: No; Do You Dip or Chew Tobacco: No; Tobacco Cessation Education Requested by Patient: No Hx Alcohol Use: Yes Hx Substance Use: No Preferred Language: Cameroonian Communication Ability: Effective 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: No Beliefs That Will Affect Care: None Current Living Situation: Spouse Other Information That Helps Us Care for You: No Feels Safe at Home: Yes Safety Concerns: Feels Safe At This Time Assistive Devices: Cane and Walker Review of Systems Review of Systems: Constitutional: No fever, sweats or chills Eyes: No diplopia, no worsening or blurred vision ENT: normal hearing, no trouble swallowing Respiratory: No cough, sputum, dyspnea at rest or on exertion, does not require supplemental O2 at baseline Cardiovascular: No chest pain, tightness or palpitations Abdomen: No pain, nausea, vomiting, diarrhea or constipation Musculoskeletal: No joint pain, calf pain, swelling, S/p left TKA as per HPI. Neurologic: No weakness, numbness/tingling, or balance problems Psychiatric: No anxiety or depression Skin: No rash or itch Physical Exam Physical Exam: General: awake, alert, still a bit somnolent from surgery but awaken to verbal stimuli and answers all questions without difficulty, no apparent distress, obese, white, female Head: Normocephalic, atraumatic ENT: PERRL, EOMI, no pharyngeal exudate, mucous membranes moist Chest: Clear to auscultation, on 2 L via NC, no adventitious breath sounds Cardiac: Regular rate and rhythm, no murmur, no JVD, normal peripheral pulses, good capillary refill Abdominal: NABS x 4 quadrants, soft, nondistended, nontender to palpation, no rebound or guarding Extremities: Normal inspection, no peripheral edema or erythema, calfs nontender to palpation Psych: Normal mood and affect Neuro: AAO x 3, strength intact bilaterally and rated 5/5, no motor deficits, speech is clear, no peripheral sensory deficits Results & Data Results & Data Vital Signs (Past 12 Hours) Vital Signs Temp Pulse Pulse Resp BP Pulse Ox O2 Del Method 01/27/24 11:11 36.8 C 75 16 103/62 95 Nasal Cannula 01/27/24 10:50 73 12 109/66 96 Nasal Cannula 01/27/24 10:40 36.4 C L 78 15 107/61 97 Nasal Cannula 01/27/24 10:30 82 15 113/70 96 Nasal Cannula 01/27/24 10:20 82 16 126/76 98 Oxymask 01/27/24 10:10 76 13 110/68 95 Oxymask 01/27/24 10:00 78 12 117/74 95 Oxymask 01/27/24 09:50 75 12 120/66 96 Oxymask 01/27/24 09:46 36.1 C L 77 18 94/61 L 95 Oxymask 01/27/24 05:34 Room Air 01/27/24 05:34 36.7 C 55 L 21 131/86 95 Room Air O2 Flow Rate 01/27/24 11:11 2 01/27/24 10:50 2 01/27/24 10:40 2 01/27/24 10:30 2 01/27/24 10:20 4 01/27/24 10:10 6 01/27/24 10:00 8 01/27/24 09:50 8 01/27/24 09:46 8 01/27/24 05:34 01/27/24 05:34
--- NOTE | 2024-01-27 12:47 | Anesthesiology Progress Note ---
Date of Service January 27, 2024 Anesthesia Post Procedure Vital Signs Vital Signs: Temp Pulse Pulse Resp BP Pulse Ox O2 Del Method 01/27/24 12:06 36.6 C 71 16 101/63 97 Nasal Cannula 01/27/24 11:39 71 16 97/59 L 97 Nasal Cannula 01/27/24 11:11 36.8 C 75 16 103/62 95 Nasal Cannula 01/27/24 10:50 73 12 109/66 96 Nasal Cannula 01/27/24 10:40 36.4 C L 78 15 107/61 97 Nasal Cannula 01/27/24 10:30 82 15 113/70 96 Nasal Cannula 01/27/24 10:20 82 16 126/76 98 Oxymask 01/27/24 10:10 76 13 110/68 95 Oxymask 01/27/24 10:00 78 12 117/74 95 Oxymask 01/27/24 09:50 75 12 120/66 96 Oxymask 01/27/24 09:46 36.1 C L 77 18 94/61 L 95 Oxymask 01/27/24 05:34 Room Air 01/27/24 05:34 36.7 C 55 L 21 131/86 95 Room Air O2 Flow Rate 01/27/24 12:06 2 01/27/24 11:39 2 01/27/24 11:11 2 01/27/24 10:50 2 01/27/24 10:40 2 01/27/24 10:30 2 01/27/24 10:20 4 01/27/24 10:10 6 01/27/24 10:00 8 01/27/24 09:50 8 01/27/24 09:46 8 01/27/24 05:34 01/27/24 05:34 Pain Intensity Left Knee: Pain Intensity: 4 Transfer of Care Handoff Completed per policy Notes Mental Status: alert / awake / arousable and participated in evaluation Nausea / Vomiting: adequately controlled Pain: adequately controlled Airway Patency, RR, SpO2: stable & adequate BP & HR: stable & adequate Hydration State: stable & adequate Anesthetic Complications: no major complications apparent and Pt Satisfied with anesthetic care
[2024-01-27] MEDS: busPIRone 5 MG TAB PO SCH (13:50)
[2024-01-27] MEDS: traZODone HCL 50 MG TAB PO SCH (20:33)
[2024-01-27] MEDS: METOPROLOL SUCC 25MG EXT REL TAB PO SCH (20:33)
[2024-01-27] MEDS: FLUoxetine HCL 20 MG CAP PO SCH (20:33)
[2024-01-27] MEDS: DOCUSATE SODIUM 100 MG CAP PO SCH (20:33)
[2024-01-27] MEDS: SENNA 8.6 MG TAB PO SCH (20:34)
[2024-01-28 06:52] LABS: Hematocrit (blood only) 35.6 % (37.0-47.0); Hemoglobin 11.6 g/dl (12.0-16.0); Mean Corpuscular Hemoglobin 30.5 pg (25.0-34.0); Mean Corpuscular Hgb Conc 32.6 g/dL (32.0-36.0); Mean Corpuscular Volume 93.7 fL (80.0-100.0); Mean Platelet Volume 10.7 fL (9.4-12.4); Platelet Count 219 K/uL (130-400); RDW Coefficient of Variation 14.7 % (11.5-14.5); RDW Standard Deviation 50.5 fL (36.4-46.3); White Blood Count 13.91 K/ul (4.8-10.8)
[2024-01-28 07:22] LABS: BUN Creatinine Ratio 20.3 (10-20); Calcium 8.9 mg/dl (8.6-10.3); Creatinine Clr Calc Pharmacy 89.8 ml/min; Est GFR (African American) 101.3 ml/min; Est GFR (Non-African American) 87.4 ml/min; Potassium 4.1 mmol/L (3.5-5.1)
--- NOTE | 2024-01-28 07:48 | Orthopedic Progress Note ---
Date of Service January 28, 2024 Assessment & Plan (1) Primary osteoarthritis of left knee: Plan: Postop day 1 status post left total knee arthroplasty. PT/OT protocols. Weightbearing as tolerated. DVT prophylaxis-Eliquis 5 mg p.o. twice daily, SCDs, ELIUD hose pain management as written mild leukocytosis-patient currently asymptomatic. Likely secondary to surgical stress and/or preoperative steroids. DC planning-patient is planning for outpatient PT upon discharge. Plan for discharge to home today after morning PT/OT Admission and Anticipated Discharge Date Admission Date: January 27, 2024 Subjective Patient is lying in bed awake and alert. She is currently undergoing some bedside exercises and she has her left heel on a heel prop. She has no complaints this morning. Pain is controlled. Overall she feels well and is hoping to go home today. Physical Exam 2 Physical Exam: Dressings are clean, dry, and intact. Calves are soft nontender. Neurovascular is intact. Toes are mobile. She has good dorsiflexion and plantarflexion of her left foot. Hemovac drainage was approximate 105 cc overnight. Results & Data Vital Signs (Past 12 Hours) Vital Signs Temp Pulse Resp BP Pulse Ox O2 Del Method 01/28/24 05:26 36.6 C 58 L 18 124/80 95 Room Air 01/28/24 02:14 36.4 C L 70 16 128/71 95 Room Air 01/27/24 21:56 36.6 C 71 18 115/68 96 Room Air 01/27/24 20:02 36.7 C 75 16 112/67 94 Room Air Laboratory Results Laboratory Results WBC 13.91 K/ul (4.8-10.8) H 01/28/24 05:51 RBC 3.80 M/uL (4.20-5.40) L 01/28/24 05:51 Hgb 11.6 g/dl (12.0-16.0) L 01/28/24 05:51 Hct 35.6 % (37.0-47.0) L 01/28/24 05:51 MCV 93.7 fL (80.0-100.0) 01/28/24 05:51 MCH 30.5 pg (25.0-34.0) 01/28/24 05:51 MCHC 32.6 g/dL (32.0-36.0) 01/28/24 05:51 RDW Std Deviation 50.5 fL (36.4-46.3) H 01/28/24 05:51 RDW Coeff of Swapna 14.7 % (11.5-14.5) H 01/28/24 05:51 Plt Count 219 K/uL (130-400) 01/28/24 05:51 MPV 10.7 fL (9.4-12.4) 01/28/24 05:51 Sodium 138 mmol/L (136-145) 01/28/24 05:51 Potassium 4.1 mmol/L (3.5-5.1) 01/28/24 05:51 Chloride 108 mmol/L (98-107) H 01/28/24 05:51 Carbon Dioxide 23 mmol/L (21-32) 01/28/24 05:51 Anion Gap 7 (3-11) 01/28/24 05:51 BUN 15 mg/dl (6-23) 01/28/24 05:51 Creatinine 0.74 mg/dl (0.6-1.2) 01/28/24 05:51 Est Cr Clr Drug Dosing 89.8 ml/min 01/28/24 05:51 Est GFR ( Amer) 101.3 ml/min 01/28/24 05:51 Est GFR (Non-Af Amer) 87.4 ml/min 01/28/24 05:51 BUN/Creatinine Ratio 20.3 (10-20) H 01/28/24 05:51 Glucose 121 mg/dl (70-99(Fasting)) H 01/28/24 05:51 Calcium 8.9 mg/dl (8.6-10.3) 01/28/24 05:51 Impressions Knee X-Ray 01/27/24 10:01 XR knee LT 1 or 2V routine CLINICAL HISTORY: Surgical Post Op TECHNIQUE: 2 views of the left knee were obtained. Comparison: None available at the time of this dictation. FINDINGS: Patient is status post total knee arthroplasty with expected postsurgical changes including soft tissue swelling and subcutaneous emphysema. No periarticular lucency or hardware fracture is seen. . IMPRESSION: Expected postoperative appearance status post placement of total knee arthroplasty. ACT 112: Negative or not required by law. Electronically signed by: Daniel Gomez M.D. 01/27/2024 11:34 AM
[2024-01-28] MEDS: MULTIVITAMIN TAB PO SCH (08:12)
[2024-01-28] MEDS: APIXABAN 5 MG TABLET PO SCH (08:12)
--- NOTE | 2024-01-28 18:58 | Communication Note ---
Date of Service: January 28, 2024 Pt left before being seen.
--- NOTE | 2024-01-29 15:14 | Discharge Summary ---
Date of Service January 29, 2024 Admission HPI Per Admitting Provider 63-year-old female with past medical history significant for A-fib, hypertension, sleep apnea who presents with ongoing left knee pain. Pain is interfering with her daily activities. She has failed conservative measures and would like to proceed with surgery. Patient denies headaches, sweats, fevers, chills, double vision, blurred vision, cough, sore throat, dysphagia, chest pain, sob, wheezing, n/v/d/c, numbness, tingling, fatigue, urinary symptoms, mood disorders. ROS positive for left knee pain and stiffness. Admission Exam Per Admitting Provider Physical Exam Constitutional: well developed and well nourished; no acute distress Eyes: PERRL, conjunctivae normal, anicteric sclerae ENMT: external ear and nose normal, oropharynx normal Neck: trachea midline, no thyromegaly Respiratory: normal respiratory effort, lungs clear to auscultation Cardiovascular: RRR, no murmur, no edema Musculoskeletal: Left knee: Valgus alignment. Mild effusion. Tenderness lateral joint line. Positive Alicia's. Stable to valgus and varus stress test. Range of motion is 0 to 90 degrees. Skin: no rashes, warm and dry Neurologic: patellar DTR's 2+ bilat, sensation intact Psychiatric: A+Ox3, euthymic affect Principal Diagnosis Left Knee Osteoarthritis Discharge Data Allergies Allergy/AdvReac Type Severity Reaction Status Date / Time sulfamethoxazole Allergy Intermediate headaches Verified 01/27/24 05:31 [From Bactrim] trimethoprim [From Bactrim] Allergy Intermediate headaches Verified 01/27/24 05:31 Consultations 01/22/24 16:25 Consult Hospitalist Routine Procedures Performed Operation Date: 01/27/24 07:15 Actual Procedures p Left Total Knee Arthroplasty(Left) - Randolph Lobo MD Ordered Studies 01/27/24 05:00 US - OR guided needle placemen Routine Hospital Course (1) Primary osteoarthritis of left knee: Plan Patient: HAYLEY BARTON Admit Date: 01/27/24 MR#: [id number] Att Phy: Randolph Lobo M.D. Acct ID: [id number] Ksenia Phy: Tio Baird PA-C Date: 1960 Fam Phy: Age: 63 Location: 3W Sex: F Room/Bed: W356-1 cc: ~ *NOTICE TO RECEIVING LIBERTARIAN/AGENCY This information is strictly Confidential and protected under [place] law. [place] law prohibits you from making any further disclosure of this information unless further disclosure is expressly permitted by the written consent of the person to whom it pertains or is authorized by law. A general authorization for the release of medical or other information is not sufficient for this purpose. Hospital accepts no responsibility if the information is made available to any other person, INCLUDING THE PATIENT. Date of Service January 28, 2024 Assessment & Plan (1) Primary osteoarthritis of left knee: Plan: Postop day 1 status post left total knee arthroplasty. PT/OT protocols. Weightbearing as tolerated. DVT prophylaxis-Eliquis 5 mg p.o. twice daily, SCDs, ELIUD hose pain management as written mild leukocytosis-patient currently asymptomatic. Likely secondary to surgical stress and/or preoperative steroids. DC planning-patient is planning for outpatient PT upon discharge. Plan for discharge to home today after morning PT/OT Admission and Anticipated Discharge Date Admission Date: January 27, 2024 Subjective Patient is lying in bed awake and alert. She is currently undergoing some bedside exercises and she has her left heel on a heel prop. She has no complaints this morning. Pain is controlled. Overall she feels well and is hoping to go home today. Physical Exam Physical Exam: Dressings are clean, dry, and intact. Calves are soft nontender. Neurovascular is intact. Toes are mobile. She has good dorsiflexion and plantarflexion of her left foot. Hemovac drainage was approximate 105 cc overnight. Results & Data Vital Signs (Past 12 Hours) Vital Signs Temp Pulse Resp BP Pulse Ox O2 Del Method 01/28/24 05:26 36.6 C 58 L 18 124/80 95 Room Air 01/28/24 02:14 36.4 C L 70 16 128/71 95 Room Air 01/27/24 21:56 36.6 C 71 18 115/68 96 Room Air 01/27/24 20:02 36.7 C 75 16 112/67 94 Room Air Laboratory Results Laboratory Results WBC 13.91 K/ul (4.8-10.8) H 01/28/24 05:51 RBC 3.80 M/uL (4.20-5.40) L 01/28/24 05:51 Hgb 11.6 g/dl (12.0-16.0) L 01/28/24 05:51 Hct 35.6 % (37.0-47.0) L 01/28/24 05:51 MCV 93.7 fL (80.0-100.0) 01/28/24 05:51 MCH 30.5 pg (25.0-34.0) 01/28/24 05:51 MCHC 32.6 g/dL (32.0-36.0) 01/28/24 05:51 RDW Std Deviation 50.5 fL (36.4-46.3) H 01/28/24 05:51 RDW Coeff of Swapna 14.7 % (11.5-14.5) H 01/28/24 05:51 Plt Count 219 K/uL (130-400) 01/28/24 05:51 MPV 10.7 fL (9.4-12.4) 01/28/24 05:51 Sodium 138 mmol/L (136-145) 01/28/24 05:51 Potassium 4.1 mmol/L (3.5-5.1) 01/28/24 05:51 Chloride 108 mmol/L (98-107) H 01/28/24 05:51 Carbon Dioxide 23 mmol/L (21-32) 01/28/24 05:51 Anion Gap 7 (3-11) 01/28/24 05:51 BUN 15 mg/dl (6-23) 01/28/24 05:51 Creatinine 0.74 mg/dl (0.6-1.2) 01/28/24 05:51 Est Cr Clr Drug Dosing 89.8 ml/min 01/28/24 05:51 Est GFR ( Amer) 101.3 ml/min 01/28/24 05:51 Est GFR (Non-Af Amer) 87.4 ml/min 01/28/24 05:51 BUN/Creatinine Ratio 20.3 (10-20) H 01/28/24 05:51 Glucose 121 mg/dl (70-99(Fasting)) H 01/28/24 05:51 Calcium 8.9 mg/dl (8.6-10.3) 01/28/24 05:51 Impressions Knee X-Ray 01/27/24 10:01 XR knee LT 1 or 2V routine CLINICAL HISTORY: Surgical Post Op TECHNIQUE: 2 views of the left knee were obtained. Comparison: None available at the time of this dictation. FINDINGS: Patient is status post total knee arthroplasty with expected postsurgical changes including soft tissue swelling and subcutaneous emphysema. No periarticular lucency or hardware fracture is seen. . IMPRESSION: Expected postoperative appearance status post placement of total knee arthroplasty. ACT 112: Negative or not required by law. Electronically signed by: Daniel Gomez M.D. 01/27/2024 11:34 AM Signed By: <Electronically signed by Shahzad Rico MD> 01/28/24 0920 <Electronically signed by Herb Chin PA-C> 01/28/24 0748 Created: 01/28/24 0745 Total Time Total Time Spent Total Time Spent (In Minutes): 10 Discharge Plan Discharge Items Patient Disposition: Home - Self-Care Reason For Visit: Left Knee Osteoarthritis Discharge Diagnosis: Left Knee Osteoarthritis Activity: Per Instructions section Weightbearing: Full weightbearing Non-emergency contact: Surgeon Call non-emergency contact if: you have any medication questions, your pain is not controlled, your temperature is above 101.5, your wound has increased redness and your wound has increased drainage Follow-up/Referrals: Randolph Lobo MD [Surgeon] - (Follow up with Dr. Lobo in 2 weeks from the day of your surgery for your first post operative visit. ) Tio Baird PA-C [Primary Care Provider] - Diet: Regular Addtl Attending Provider Instructions: ACTIVITY RECOMMENDATIONS: SELF CARE INSTRUCTIONS AFTER TOTAL KNEE REPLACEMENT A. You may need to continue a physical therapy program after discharge from the hospital. There are several options available to you. Your doctor will assist you in selecting the best one for you. 1. An out-patient facility 2 to 3 times a week for therapy or home therapy. 2. Continue working on all exercises taught to you in the hospital. Your goals should be to increase bending of your knee to 90 degrees and beyond and to fully straighten your knee. B. You may progress at your own pace from walking with a walker or crutches to a cane; then to no assistive devices. C. Make walking a part of your daily routine. Be up as much as comfortable with rest periods throughout the day. Rest with leg elevation is very important. Use the ice wrap frequently for the first 3-4 weeks. D. There are no restrictions on activities. You may ride in a car, shop, participate in ground worker and all social activities. E. Wear the long elastic stockings (ELIUD hose) 20 hours a day for 2 weeks after surgery. They can be removed several times a day for laundering and for a bath. F. You may shower, no tub baths until cleared by your doctor. SPECIAL CARE INSTRUCTIONS: VERY IMPORTANT TO READ AND REVIEW A. There are a few signs you need to watch for after you are home. Call [facility] if you notice any of the followin. Increased severe knee pain. Some pain is expected especially when you exercise. 2. Increased swelling in your leg or knee; pain or swelling of the calf muscle in either lower leg. 3. Any fluid drainage from the incision. 4. Shortness of breath or chest pain. B. Please call [facility] at if you have any concerns or questions about your operation or recovery. The doctor or his nurse will return your call promptly. C. You must take antibiotics before dental work, bladder, bowel or other surgery. Your doctor will provide you with a permanent care to carry describing this precaution. IMPORTANT: * REMEMBER TO TAKE ASPIRIN, 81 MG, TWICE DAILY FOR 4 WEEKS UNLESS OTHERWISE DIRECTED. THIS IS YOUR BLOOD THINNER. * HIGH RISK PATIENTS MAY BE PRESCRIBED A STRONGER BLOOD THINNER. THIS WILL BE PROVIDED AT DISCHARGE. * CALL IF INCREASED PAIN, REDNESS, DRAINAGE OR FEVER GREATER THAT 101. * WEAR ELIUD HOSE 20 HOURS PER DAY FOR 2 WEEKS. * SHADI DRessing - This is a large suction dressing covering your incision. This will help pull any excess drainage from the wound and allow your incision to heal properly. You may shower with this if you can keep the unit outside of the shower. If any bleeding or leakage is noted please call your doctor's office. This will remain on your incision for 7 days and then should be removed. This can be done yourself or by the home nursing staff if applicable. The entire unit is disposable once removed. Once removed, keep incision clean and dry. If redness or drainage is noted, please call your surgeon. . FOLLOW UP VISIT: If appointment is not already scheduled: Please call [facility] to make a follow-up appointment for 2 weeks after your surgery at . Stand-Alone Forms: My [facility], Smoking Cessation Medications and DC Order Prescriptions: New acetaminophen [Tylenol Extra Strength] 500 mg Tablet 1,000 mg PO Q8 14 Days Qty: 84 0RF polyethylene glycol 3350 [Miralax] 17 gram powder in packet 17 g PO DAILY PRN (Reason: constipation) Qty: 5 0RF cefadroxil 500 mg capsule 500 mg PO BID Qty: 14 0RF oxycodone 5 mg tablet 5 mg PO Q4H MDD 6 PRN (Reason: pain) Qty: 30 0RF Continued metoprolol succinate 25 mg Tablet Extended Release 24 Hr 25 mg PO BID Eliquis 5 mg Tablet 5 mg PO BID Patient Comments: pt. reports not current taking due to insurance fluoxetine 40 mg Capsule 40 mg PO HS buspirone 5 mg Tablet 5 mg PO TID trazodone 50 mg Tablet 50 mg PO HS Discharge Orders: Discharge Order (Routine); Ordered 01/28/24 Ordered By: Herb Estrada/Other Patient Handouts: Oxycodone Oral Tablet, Knee Replacement Total Dc Admission Data Admit Date/Time: 01/27/24 10:01 Attending Provider: Randolph Lobo Admit Provider: Randolph Lobo Primary Care Provider: Tio Baird Other Providers: Bob Swann Other Interventions: Discharge Summary Assessment (RN) Last Done: 01/28/24 09:41
== END 2024-01-28 10:59 | disposition home or self-care (01) ==
LOC: ASU 05:14 → 3W 05:14